=== PATIENT | male | born 1975 | race Caucasian/White ===

== ENCOUNTER 2024-08-13 12:15 | Emergency (ER) | payer BC, SELFPAY ==
[2024-08-13 12:33] VITALS: BP 159/120; PULSE 117; RESP 21; TEMP 37.3; O2SAT 94; BMI 31.4
--- NOTE | 2024-08-13 12:41 | XR_ITS ---
Examination: CTA chest with intravenous contrast 2-D reconstructions 3-D reconstructions, vascular Date and time of exam: August 13, 2024 1457 hrs. Indications: Shortness of breath chest pain coughing today CTDI: vol (mGy) 12.5 DLP: (mGycm) 400 Technique: Multiple axial sections of the thorax have been obtained. 3 mm slice thickness, from below the hemidiaphragms to above the apices of the lungs. Mediastinal and lung density settings have been obtained. 2-D sagittal and coronal reconstructions. 3-D angiographic renderings, 3-D volume renderings, 3D post processing, vascular maximum intensity projections obtained. Contrast administered is 100 cc Isovue-370. Low dose protocols were performed. One or more of the following dose reduction techniques were used; automated exposure control, adjustment of the mA and/or KV according to patient size, use of iterative reconstruction technique. Findings: AP dimension ascending thoracic aorta 4 cm No pulmonary artery emboli Mild enlargement cardiac contour No pneumonia or pulmonary edema No pleural disease Liver is mildly irregular in contour No pancreatic mass Gallbladder wall appears thickened Impression: Negative for pulmonary artery emboli Recommend hepatobiliary sonography follow-up to exclude acute acalculous cholecystitis
--- NOTE | 2024-08-13 12:41 | XR_ITS ---
Examination: PA lateral chest 2 views Technique: Upright PA lateral chest 2 views Exam date and time: August 13, 2024 1255 hrs. Indications: Chest pain today Findings: Early heart failure Mild to moderate enlargement cardiac contour Prominent vascular congestion with early septal edema at the lung bases Impression: Early heart failure
--- NOTE | 2024-08-13 12:41 | EKG_ITS ---
[facility] Test Date: 2024-08-13 Pat Name: VALERIA ALMAGUER Department: Room: - Gender: Male [employer]: : 1975 Requested By: Kaleb Nicolas Order Number: [id number] Reading MD: Kaleb Nicolas Measurements Intervals [place] Rate: 110 P: 55 CT: 153 QRS: 101 QRSD: 102 T: 66 QT: 341 QTc: 462 Interpretive Statements SINUS TACHYCARDIA LEFT ATRIAL ENLARGEMENT [-0.15mV P WAVE IN V1/V2] POSSIBLE RIGHT VENTRICULAR HYPERTROPHY [SOME/ALL OF: PROMINENT R IN V1, LATE TRANSITION, RAD, KAREY, SSS] Compared to ECG 04/01/2024 08:24:06 Atrial abnormality now present Atrial flutter no longer present Intraventricular conduction delay no longer present ST (T wave) deviation no longer present /store/S0/[id number]/ecg/[id number].pdf
--- NOTE | 2024-08-13 12:42 | PD.EDRME ---
Rapid Medical Screening Exam RME Arrival date/time: 08/13/24 12:15 Chief Complaint: Shortness of Breath/Dyspnea Time Seen by Provider: 08/13/24 12:37 Vital signs: Vital Signs Temperature 99.2 F 08/13/24 12:33 Pulse Rate 117 H 08/13/24 12:33 Respiratory Rate 21 H 08/13/24 12:33 Blood Pressure 159/120 H 08/13/24 12:33 Pulse Oximetry (%) 94 L 08/13/24 12:33 Oxygen Delivery Method Room Air 08/13/24 12:33 Vital signs reviewed by provider: Yes RME Narrative: 41-year-old male with history of A-fib presents for evaluation of chest pain, shortness of breath, cough x 1 day. Patient reports history of septal ablation in April and has since been off all cardiac meds. Endorses bilateral lower extremity pitting edema x 1 day.
[2024-08-13 13:34] LABS: Basophils % (Auto) 0 % (0-2.5); Eosinophils # (Auto) 0.1 Thou/mm3 (0.0-0.5); Eosinophils % (Auto) 1 % (0-10); Hematocrit 42.4 % (41.0-53.0); Hemoglobin 14.1 g/dL (13.5-16.0); Immature Granulocytes % (Auto) 1 % (0-0); Lymphocytes % (Auto) 23 % (10-50); Mean Corpuscular HGB Conc 33.3 g/dl (31.0-37.0); Mean Corpuscular Hemoglobin 30.7 pg (25.0-35.0); Mean Corpuscular Volume 92 fL (80-100); Monocytes # (Auto) 0.7 Thou/mm3 (0.0-0.8); Monocytes % (Auto) 8 % (0-12); Neutrophils % (Auto) 67 % (37-80); Nucleated Red Blood Cell # 0.02 Thou/mm3 (0.00-0.00); Nucleated Red Blood Cell % 0 /100 WBC (0); Platelet Count 290 Thou/mm3 (140-440); RDW Standard Deviation 50.6 fL (35.1-43.9); White Blood Count 8.9 Thou/mm3 (3.8-10.6)
[2024-08-13] MEDS: ACETAMINOPHEN 325 MG TABLET PO (13:48)
[2024-08-13 13:49] LABS: INR 1.2 (0.9-1.3); Partial Thromboplastin Time 24.8 Seconds (22.0-36.0)
[2024-08-13 13:51] LABS: B-Type Natriuretic Peptide 416 pg/mL (0-100)
[2024-08-13 13:54] LABS: Alanine Aminotransferase 47 U/L (10-49); Albumin, Serum 4.5 gm/dL (3.5-5.0); Albumin/Globulin Ratio 1.5 (1.2-2.2); Alkaline Phosphatase 129 U/L (46-116); Anion Gap 7 (7-16); Aspartate Amino Transferase 36 U/L (0-34); BUN/Creatinine Ratio 13 Ratio (12-20); Bilirubin,Total 0.8 mg/dL (0.3-1.2); Blood Urea Nitrogen 17 mg/dL (9-23); Calcium 10.2 mg/dL (8.3-10.6); Calcium (Corrected) 10.2 mg/dL (8.5-10.1); Carbon Dioxide 25.2 mMol/L (20.0-31.0); Chloride 107 mMol/L (98-107); Creatinine (Component) 1.3 mg/dL (0.6-1.3); Estimated Creatinine Clearance 84.5 mL/min (>60); Globulin 3.1 gm/dL (2.3-3.5); Glucose 123 mg/dL (74-106); Osmolality,Calculated 280 (275-295); Potassium 4.5 mMol/L (3.4-5.1); Sodium 139 mMol/L (136-145); Total Protein 7.6 gm/dL (5.7-8.2); eGFR > 60 See Note
[2024-08-13 13:58] LABS: Troponin I 0.101 ng/mL (0.0-0.045)
[2024-08-13 14:24] VITALS: BP 151/114; PULSE 98; RESP 18; TEMP 36.6; O2SAT 95
--- NOTE | 2024-08-13 14:59 | PD.EDSOB ---
ED SOB =RME/HPI General Chief Complaint: Shortness of Breath/Dyspnea Stated Complaint: SHORTNESS OF BREATH WITH COUGH Time Seen by Provider: 08/13/24 12:37 Arrival date/time: 08/13/24 12:15 Limitations: no limitations RME / HPI RME / HPI Narrative: 41-year-old male with history of A-fib presents for evaluation of chest pain, shortness of breath, cough x 1 day. Patient reports history of septal ablation in April and has since been off all cardiac meds. Endorses bilateral lower extremity pitting edema x [address] TA MAIN ED EVALUATION: 49 year old male with history of Afib, s/p cardiac ablation performed by Dr. Alfredo 04/2024 and doing well after ablation up until 1 week ago, presents to the ED for complaint of shortness of breath with cough today. States last week was diagnosed with walking pneumonia but PCP and treated with Z-pack which he completed 5 days ago. States in the midst of the flu-like symptoms, he developed shortness of breath with no alleviating/aggravating factors. Denies fevers, chills, chest pain, abdominal pain, n/v/d, or urinary symptoms. Related Data Home Medications ?Medication ?Instructions ?Recorded ?Confirmed carvedilol 6.25 mg tablet 6.25 mg PO BID HTN 12/31/23 04/01/24 apixaban 5 mg tablet (Eliquis) 5 mg PO BID 04/01/24 04/01/24 diltiazem HCl 30 mg tablet 30 mg PO TID 04/01/24 04/01/24 furosemide 20 mg tablet 20 mg PO QDAY 04/01/24 04/01/24 Previous Rx's ?Medication ?Instructions ?Recorded furosemide 20 mg tablet (Lasix) 20 mg PO QAM #30 tabs 08/13/24 Allergies Allergy/AdvReac Type Severity Reaction Status Date / Time Sulfa (Sulfonamide Allergy Unknown Verified 08/13/24 12:16 Antibiotics) Review of Systems Review of Systems Systems Reviewed: All systems reviewed, normal except as documented Past Medical History Past Medical History CARDIAC: Positive Cardiac Disorders and Hypertension RESPIRATORY: Positive Sleep Apnea GASTROINTESTINAL: Positive Gastrointestinal Disorders, Hiatal Hernia (has 2 hernia(has 1 mesh and one lasered) and Obesity PSYCHO/SOCIAL: Positive Depression, Anxiety (due to large crowd) and Post Traumatic Stress Disorder (pt stated he has PTSD) OTHER HISTORY: Positive Chicken Pox Family History FAMILY HISTORY: Positive Family Psychiatric Problems (paternal aunt schit) and Family Surgery (father had knee surgery); Negative Family Respiratory Disorders, Family Cardiac Disorders or Family Anesthesia Reaction Surgical History SURGICAL: Positive Angiogram (04/01/2024) Social History SMOKING STATUS: Never smoker ED Exam General Limitations: Present no limitations General appearance: Present alert and in no apparent distress Head Head exam: Present atraumatic Eye Eye exam: Present normal appearance, PERRL and EOMI ENT ENT exam: Present normal exam, normal oropharynx and mucous membranes moist Neck Neck exam: Present normal inspection, full ROM and trachea midline Chest Chest inspection: Present normal inspection and symmetric chest wall rise Respiratory Respiratory exam: Present normal lung sounds bilaterally and other (No respiratory distress, speaking full sentences ) Cardiovascular Cardiovascular exam: Present tachycardia (rate 105 ) and normal heart sounds Abdominal Exam Abdominal exam: Present soft and normal bowel sounds Extremities Exam Extremities exam: Present normal inspection and full ROM Back Exam Back exam: Present normal inspection and full ROM Neurological Exam Neurological exam: Present alert, oriented X3 and CN II-XII intact Psychiatric Psychiatric exam: Present normal affect and normal mood Skin Skin exam: Present warm, dry, intact and normal color Course Course Course Narrative: chest xray ordered to help determine etiology of shortness of breath. Quality Measures none Orders Category Date Time Status Bedside COVID-19 Antigen Test NOW Care 08/13/24 12:41 Active Bedside Influenza A&B Antigen Test NOW Care 08/13/24 12:[address] Screening NOW Care 08/13/24 12:41 Active Sterile Supervisor Q4H START 00 Care 08/13/24 12:42 Active EKG (ED ONLY) *Do not use* NOW Care 08/13/24 12:41 Completed Insert IV NOW Care 08/13/24 12:[address] angio chest Stat Exams 08/13/24 12:41 Completed EKG (ED Only) Stat Exams 08/13/24 12:41 Draft XR chest 2V Stat Exams 08/13/24 12:41 Completed B-Type Natriuretic Peptide Stat Lab 08/13/24 13:02 Completed CBC Stat Lab 08/13/24 13:02 Completed Comprehensive Metabolic Panel Stat Lab 08/13/24 13:02 Completed Drug Screen,Urine Stat Lab 08/13/24 12:41 Ordered Magnesium Stat Lab 08/13/24 13:02 Completed Partial Thromboplastin Time Stat Lab 08/13/24 13:02 Completed Prothrombin Time with INR Stat Lab 08/13/24 13:02 Completed Troponin I Stat Lab 08/13/24 13:02 Completed Troponin I Stat Lab 08/13/24 16:57 Completed Urinalysis Stat Lab 08/13/24 12:41 Ordered Acetaminophen Tab [Tylenol Tab] Med 08/13/24 12:42 Discontinued 325 mg PO X1 ONE Reevaluation(s) Reevaluation #1: We reviewed all the results, analysis, and plan to repeat troponin. Time: 16:30 Reevaluation #2: We reviewed all the results, analysis, and treatment plans. Patient is amenable to discharge. Strict return precautions were outlined. Patient was discharged in stable condition. Patient is requesting a refill of his diuretic until he is able to see his gastroenterology teacher. Time: 16:34 Vital Signs Vital signs: Vital Signs Temperature 99.2 F 08/13/24 12:33 Pulse Rate 117 H 08/13/24 12:33 Respiratory Rate 21 H 08/13/24 12:33 Blood Pressure 159/120 H 08/13/24 12:33 Pulse Oximetry (%) 94 L 08/13/24 12:33 Oxygen Delivery Method Room Air 08/13/24 12:33 Pulse ox is 94% on room air which is adequate. Shortness of Breath / Dyspnea MDM Narrative MDM Narrative:: Day Jackson am scribing for and in the presence of Dr. Ta. Patient data External records reviewed:: [facility] previous records (I reviewed H&P on 04/01/2024) Clinical information provided by:: patient Social determinants that could affect healthcare access:: none Patient has the following chronic illnesses:: AFib, s/p cardiac ablation How is presenting disease/condition affected by chronic disease/condition?: exacerbated by Evaluation data The following diagnostics were reviewed and interpreted by me:: lab results, radiology exam(s) and EKG tracing(s) (sinus tachycardia, rate 101, no STEMI. ) Lab and/or radiology exams considered but not ordered:: None Interpretation Summary: Ordering Physician: Kaleb Bernstein PA-C Date of Service: 08/13/24 Procedure(s): CT angio chest Accession Number(s): [id number] cc: Kaleb Bernstein PA-C; Gurmeet Lewis MD; Félix Proctor MD~ Examination: CTA chest with intravenous contrast 2-D reconstructions 3-D reconstructions, vascular Date and time of exam: August 13, 2024 1457 hrs. Indications: Shortness of breath chest pain coughing today CTDI: vol (mGy) 12.5 DLP: (mGycm) 400 Technique: Multiple axial sections of the thorax have been obtained. 3 mm slice thickness, from below the hemidiaphragms to above the apices of the lungs. Mediastinal and lung density settings have been obtained. 2-D sagittal and coronal reconstructions. 3-D angiographic renderings, 3-D volume renderings, 3D post processing, vascular maximum intensity projections obtained. Contrast administered is 100 cc Isovue-370. Low dose protocols were performed. One or more of the following dose reduction techniques were used; automated exposure control, adjustment of the mA and/or KV according to patient size, use of iterative reconstruction technique. Findings: AP dimension ascending thoracic aorta 4 cm No pulmonary artery emboli Mild enlargement cardiac contour No pneumonia or pulmonary edema No pleural disease Liver is mildly irregular in contour No pancreatic mass Gallbladder wall appears thickened Impression: Negative for pulmonary artery emboli Recommend hepatobiliary sonography follow-up to exclude acute acalculous cholecystitis Dictated By: Félix Proctor MD Signed By: <Electronically signed by Félix Proctor MD in [place]> 08/13/24 1524 Ordering Physician: Kaleb Bernstein PA-C Date of Service: 08/13/24 Procedure(s): XR chest 2V Accession Number(s): [id number] cc: Kaleb Bernstein PA-C; Félix Proctor MD~ Examination: PA lateral chest 2 views Technique: Upright PA lateral chest 2 views Exam date and time: August 13, 2024 1255 hrs. Indications: Chest pain today Findings: Early heart failure Mild to moderate enlargement cardiac contour Prominent vascular congestion with early septal edema at the lung bases Impression: Early heart failure Dictated By: Félix Proctor MD Signed By: <Electronically signed by Félix Proctor MD in [place]> 08/13/24 1311 Medications / Prescriptions Medications or Prescriptions considered but not ordered:: None Medication administrations:: Medication Administration History Discontinued Medications Acetaminophen (Acetaminophen 325 Mg Tablet) 325 mg PO X1 ONE Stop: 08/13/24 12:43 Last Admin: 08/13/24 13:48 Dose: 325 mg Documented By: TM See above Consultations Consultation(s) initiated? (list below): Yes Consultation #1 (Physician, Specialty, Details): I spoke with gastroenterology teacher Dr. Ramos. Discussed patients PMHx, HPI, ED course, exam findings, labs, and radiology results. States there is a troponin leak and is okay for the patient to be discharged home and follow up with gastroenterology teacher. Time: 16:28 Diagnosis Shortness of Breath Differential Diagnosis: community acquired pneumonia and other (Viral illness, CHF, CA ) Most likely diagnosis given after review of the tests above:: Acute dyspnea Elevated troponin I level Admission Indicated Admission indicated?: not indicated Admission Request Was there a request for admission?: No Disposition Plan Disposition Plan: Discharge Discharge Attestation Discharge Attestation: The patient and all family members were given an opportunity to ask questions and understood the discharge instructions. Discharge instructions specifically effects, indications for sooner follow up or return to the emergency department, and the expected course of current diagnosis. Patient condition: Stable Critical Care Time Critical Care Time Critical Care Time: Yes Total Critical Care Time (min.): 35 Attestation: The high probability of sudden, clinically significant deterioration in the patient's condition required the highest level of my preparedness to intervene urgently. The services I provided to this patient were to treat and/or prevent clinically significant deterioration. Services included the following: chart data review, reviewing nursing notes and/or old charts, documentation time, change management consultant collaboration regarding findings and treatment options, medication orders and management, direct patient care, vital sign assessments and ordering, interpreting and reviewing diagnostic studies and lab tests. Aggregate critical care time includes only time during which I was engaged in work directly related to the patient's care, as described above, whether at bedside or elsewhere in the Emergency Department. It did not include time spent performing other reported procedures or the services of residents, students, nurses or physician assistants. Discharge Plan Plan Patient Disposition: HOME (Self Care) Patient condition on transfer: Stable Prescriptions/Referrals Prescriptions/Med Rec: New furosemide [Lasix] 20 mg tablet 20 mg PO QAM Qty: 30 0RF No Action carvedilol 6.25 mg tablet 6.25 mg PO BID Patient Comments: TAKE 1 TABLET BY MOUTH TWICE A DAY furosemide 20 mg Tablet 20 mg PO QDAY diltiazem HCl 30 mg Tablet 30 mg PO TID Eliquis 5 mg Tablet 5 mg PO BID Referrals: Gurmeet Lewis MD [Primary Care Provider] - In 1 week Problem List Clinical Impression: Acute dyspnea, Elevated troponin I level Patient/Caregiver Discharge Instructions Discharge Activity: activity as tolerated Education Materials: ED Shortness of Breath (Dyspnea) Print Language: Sami Stand Alone Forms: [facility] Award Info., Patient Portal Info Letter
[2024-08-13 16:11] VITALS: BP 156/114; PULSE 104; RESP 15; TEMP 36.7; O2SAT 97
[2024-08-13 17:20] LABS: Troponin I 0.112 ng/mL (0.0-0.045)
== END 2024-08-13 18:08 | disposition home or self-care (01) ==
PROVIDERS: Physician Assistant; Emergency Provider Emergency Medicine; PCP Internal Medicine
DX: I11.0 Hypertensive heart disease with heart failure (principal); I50.9 Heart failure, unspecified; R00.0 Tachycardia, unspecified; I48.91 Unspecified atrial fibrillation; Z79.01 Long term (current) use of anticoagulants
CPT/HCPCS: 36415; 71046; 71275; 80053; 80307; 81001; 83735; 83880; 84484; 85025; 85610; 85730; 87400; 87811; 93005; 99291; A4649; Q9967; A9270

== ENCOUNTER 2024-08-15 04:02 | Emergency (ER) | payer BC, SELFPAY ==
[2024-08-15] VITALS (9 sets, daily range): BP systolic 114–164; BP diastolic 108–123; PULSE 88–107; RESP 16–20; TEMP 36.4–36.8; O2SAT 95–98; BMI 31.4
--- NOTE | 2024-08-15 04:09 | PD.EDRME ---
Rapid Medical Screening Exam RME Arrival date/time: 08/15/24 04:02 49 year old male present to Ed for c/o chest pain, sob today I have greeted and performed a focused initial assessment of this patient. A comprehensive ED assessment and evaluation of the patient, analysis of all test results, and completion of the medical decision making process will be conducted by additional ED providers. Chief Complaint: General Adult/Misc Complain Time Seen by Provider: 08/15/24 04:07 Vital signs: Vital Signs Temperature 97.5 F 08/15/24 04:08 Pulse Rate 107 H 08/15/24 04:08 Respiratory Rate 20 08/15/24 04:08 Blood Pressure 154/111 H 08/15/24 04:08 Pulse Oximetry (%) 96 08/15/24 04:08 Oxygen Delivery Method Room Air 08/15/24 04:08
--- NOTE | 2024-08-15 04:10 | XR_ITS ---
Examination: PA lateral chest 2 views Technique: Upright PA lateral chest 2 views August 15, 2024 0416 hrs. Comparison August 13, 2024 Indications: Shortness of breath chest pain today. Findings: Mild heart failure Mild prominence left ventricle Prominent vascular congestion Early pulmonary edema at the lung bases Impression: Mild heart failure
[2024-08-15 05:31] LABS: Basophils % (Auto) 0 % (0-2.5); Eosinophils # (Auto) 0.1 Thou/mm3 (0.0-0.5); Eosinophils % (Auto) 1 % (0-10); Hematocrit 41.4 % (41.0-53.0); Immature Granulocytes % (Auto) 1 % (0-0); Immature Granulocytes Auto 0.08 Thou/mm3 (0.00-0.00); Lymphocytes # (Auto) 1.1 Thou/mm3 (1.0-4.8); Lymphocytes % (Auto) 9 % (10-50); Mean Corpuscular HGB Conc 33.8 g/dl (31.0-37.0); Mean Corpuscular Volume 92 fL (80-100); Monocytes # (Auto) 0.5 Thou/mm3 (0.0-0.8); Monocytes % (Auto) 5 % (0-12); Neutrophils # (Auto) 10.3 Thou/mm3 (1.8-7.7); Neutrophils % (Auto) 85 % (37-80); Nucleated Red Blood Cell # 0.02 Thou/mm3 (0.00-0.00); Nucleated Red Blood Cell % 0 /100 WBC (0); Platelet Count 300 Thou/mm3 (140-440); RDW Standard Deviation 50.4 fL (35.1-43.9); Red Blood Count 4.52 Miln/mm3 (4.50-5.90); White Blood Count 12.1 Thou/mm3 (3.8-10.6)
[2024-08-15 05:40] LABS: INR 1.3 (0.9-1.3); Prothrombin Time 13.5 Seconds (9.0-12.2)
[2024-08-15 06:02] LABS: B-Type Natriuretic Peptide 529 pg/mL (0-100)
[2024-08-15 06:03] LABS: Alanine Aminotransferase 43 U/L (10-49); Albumin, Serum 4.5 gm/dL (3.5-5.0); Albumin/Globulin Ratio 1.7 (1.2-2.2); Alkaline Phosphatase 123 U/L (46-116); Anion Gap 11 (7-16); Aspartate Amino Transferase 33 U/L (0-34); BUN/Creatinine Ratio 18 Ratio (12-20); Bilirubin,Total 1.1 mg/dL (0.3-1.2); Blood Urea Nitrogen 23 mg/dL (9-23); Calcium 9.3 mg/dL (8.3-10.6); Calcium (Corrected) 9.3 mg/dL (8.5-10.1); Carbon Dioxide 21.4 mMol/L (20.0-31.0); Chloride 103 mMol/L (98-107); Creatinine (Component) 1.3 mg/dL (0.6-1.3); Estimated Creatinine Clearance 84.5 mL/min (>60); Globulin 2.6 gm/dL (2.3-3.5); Glucose 176 mg/dL (74-106); Magnesium 1.8 mg/dL (1.6-2.6); Osmolality,Calculated 277 (275-295); Sodium 135 mMol/L (136-145); Thyroid Stimulating Hormone 3.14 uIU/mL (0.55-4.78); Total Protein 7.1 gm/dL (5.7-8.2); eGFR > 60 See Note
[2024-08-15] MEDS: NITROGLYCERIN OINT 2% 1 INCH PACKET 2 INCH TOP (06:58)
[2024-08-15] MEDS: FUROSEMIDE INJ 10 MG/ML 4ML VIAL 40 MG IVP (07:00)
--- NOTE | 2024-08-15 07:28 | PC.NURSE ---
REPORT RECEIVED, PATIENT SITTING UP IN BED WITH NO COMPLAINTS AT THIS TIME. URINAL GIVEN TO PATIENT. WILL CONTINUE TO MONITOR. CALL LIGHT WITHIN REACH.
--- NOTE | 2024-08-15 07:40 | EDNOTE_ITS ---
ED General RME/HPI General Chief complaint: General Adult/Misc Complain Stated complaint: DIZZINESS, LIGHTHEADED Time Seen by Provider: 08/15/24 04:07 Arrival date/time: 08/15/24 04:02 RME / HPI RME / HPI narrative: RME: 08/15/24 04:02 49 year old male present to Ed for c/o chest pain, sob today 49-year-old male with a history of A-fib/flutter (status post ablation, no longer on anticoagulant), CHF (EF of 30 to 35%) who presents with approximately 2 weeks of worsening shortness of breath and chest tightness. He had seen his primary care doctor, Dr. Prince initially and was started on a Z-Cirilo for a bad cough . Z-Cirilo did not clear his symptoms a progressively came more short of breath therefore came to the emergency department 2 to 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 Today he returns as his shortness of breath continues to worsen. Shortness of breath is described as worse at night times, occasionally waking him up at night. It is associated with a dry cough. He has a circumferential chest tightness, this worse with deep breaths. It is also worsened with laying down. He denies fevers, chills, sweats. He also complains of lower extremity/ankle swelling. He takes furosemide 20 mg once daily. Related Data Home Medications ?Medication ?Instructions ?Recorded ?Confirmed furosemide 20 mg tablet 20 mg PO QDAY 04/01/24 08/15/24 Previous Rx's ?Medication ?Instructions ?Recorded diltiazem HCl 120 mg capsule,24 120 mg PO QAM #14 caps 08/15/24 hr,extended release Allergies Allergy/AdvReac Type Severity Reaction Status Date / Time Sulfa (Sulfonamide Allergy Unknown Verified 08/15/24 04:04 Antibiotics) Review of Systems Review of Systems Systems Reviewed: All systems reviewed, normal except as documented ED Exam Narrative Physical exam: GENERAL APPEARANCE: AxOx4, generally well-appearing, no acute distress, speaking full sentences, legs crossed and comfortable HEENT: NC, AT. MMM. EOMI, clear conjunctiva, oropharynx clear. NECK: Supple without lymphadenopathy. No stiffness or restricted ROM. HEART: Normal rate and regular rhythm, normal S1/S1, no m/r/g LUNGS: Distant lung sounds moving air well. No crackles or wheezes are heard. ABDOMEN: Soft, nontender, nondistended with good bowel sounds heard. BACK: No midline C/T/L spine pain or deformity, No CVAT, no obvious deformity. EXTREMITIES: Without cyanosis, clubbing or trace bilateral lower extremity edema. MUSCULOSKELETAL: FROM of all major joints, no chest tenderness NEUROLOGICAL: Grossly nonfocal. Alert and oriented, moving all 4 extremities. CN not formally tested but appear grossly intact. Observed to ambulate with normal gait. Skin: Warm and dry without any rash. Course Quality Measures none Orders Category Date Time Status EKG (ED ONLY) *Do not use* NOW Care 08/15/24 04:05 Completed EKG (ED Only) Stat Exams 08/15/24 04:05 Ordered XR chest 2V Stat Exams 08/15/24 04:10 Completed BNP [B-Type Natriuretic Peptide] Stat Lab 08/15/24 04:50 Completed CBC Stat Lab 08/15/24 04:50 Completed CMP [Comprehensive Metabolic Panel] Stat Lab 08/15/24 04:50 Completed INR [Prothrombin Time with INR] Stat Lab 08/15/24 04:50 Completed Mag [Magnesium] Stat Lab 08/15/24 04:50 Completed TSH [Thyroid Stimulating Hormone] Stat Lab 08/15/24 04:50 Completed Troponin I Stat Lab 08/15/24 04:50 Completed Troponin I Stat Lab 08/15/24 09:00 Completed Diltiazem [Cardizem] Med 08/15/24 09:03 Discontinued 30 mg PO X1 ONE Furosemide Inj [Lasix Inj] Med 08/15/24 06:53 Discontinued 40 mg IVP X1 ONE Nitroglycerin Oint 2% [Nitro-paste Oint 2%] Med 08/15/24 06:53 Discontinued 2 inch TOP X1 ONE Reevaluation(s) Reevaluation #1: 1.25 liters of urine output after furosemide. He states he feels better and is able to take a pierre breath. He no longer feels heavy on his chest. He is requesting discharge at this point as he feels it would be more convenient for him to urinate in his own bathroom. Patients heart rate has improved significantly to a range of 85-95.. Time: 09:00 Vital Signs Vital signs: Vital Signs Temperature 97.5 F 08/15/24 04:08 Pulse Rate 107 H 08/15/24 04:08 Respiratory Rate 20 08/15/24 04:08 Blood Pressure 154/111 H 08/15/24 04:08 Pulse Oximetry (%) 96 08/15/24 04:08 Oxygen Delivery Method Room Air 08/15/24 04:08 SpO2 96% on room air, not hypoxic MDM Patient data External records reviewed:: [facility] previous records (Transesophageal echocardiogram 12/2023 with: severe systolic dysfunction. Severe global hypokinesis wall motion. The ejection fraction is visually estimated at 30- 35%) Clinical information provided by:: patient Social determinants that could affect healthcare access:: none Patient has the following chronic illnesses:: CHF How is presenting disease/condition affected by chronic disease/condition?: c aused by Evaluation data The following diagnostics were reviewed and interpreted by me:: lab results, radiology exam(s) and EKG tracing(s) Lab and/or radiology exams considered but not ordered:: None Interpretation Summary: As per narrative Medications Medications considered but not ordered:: None Medication administrations:: Medication Administration History Discontinued Medications Diltiazem HCl (Diltiazem 30 Mg Tablet) 30 mg PO X1 ONE Stop: 08/15/24 09:04 Last Admin: 08/15/24 09:11 Dose: 30 mg Documented By: JOSÉ ANTONIO Furosemide (Furosemide Inj 10 Mg/Ml 4ml Vial) 40 mg IVP X1 ONE Stop: 08/15/24 06:54 Last Admin: 08/15/24 07:00 Dose: 40 mg Documented By: AYE Nitroglycerin (Nitroglycerin Oint 2% 1 Inch Packet) 2 inch TOP X1 ONE Stop: 08/15/24 06:54 Last Admin: 08/15/24 06:58 Dose: 2 inch Documented By: AYE Above Consultations Consultation(s) initiated? (list below): No Diagnosis Differential Diagnosis ED Complaint MDM: CHF exacerbation, pneumonia, bronchitis, asthma exacerbation, COPD exacerba Most likely diagnosis given after review of the tests above:: See below Admission Indicated Admission indicated?: not indicated Explain why admission is indicated or not indicated:: see above Admission Request Was there a request for admission?: No Disposition Plan Disposition Plan: Discharge Discharge Attestation Discharge Attestation: The patient and all family members were given an opportunity to ask questions and understood the discharge instructions. Discharge instructions specifically effects, indications for sooner follow up or return to the emergency department, and the expected course of current diagnosis. Patient condition: Stable Medical Decision Making MDM Narrative MDM Narrative: Mr. Peterson is otherwise well-appearing without signs of respiratory distress who presents with chest pain and shortness of breath consistent with a CHF exacerbation in the setting of having quite advanced heart failure for his age (EF of 30 to 35%). He has a history of atrial fibrillation of which he is post ablation no longer is taking anticoagulation. EKG today shows sinus tachycardia without signs of ischemic changes. Troponin is mildly elevated at 0.15 and remained stable with a repeat of 0.13 where on chart review shows is stable in comparison to his visit here 2 days ago where he was 0.10 and 0.11. I suspect there is a worsening CHF exacerbation over these last couple of days and is consistent with a type II strain on the heart. BNP supports this picture at 500. This is in the setting of having an EF of 30 to 35% and on minimal diuretics, Lasix at 20 mg daily. Chest x-ray my interpretation shows diffuse interstitial markings consistent with pulmonary edema, cardiomegaly, without bony abnormalities, I reviewed the radiology interpretation and agree. Moreso given his low EF, his blood pressure is quite elevated today 154/111, which I feel is further worsening a picture of pulmonary edema. As result patient was given nitroglycerin paste for preload and afterload control while diuretic was given parenterally. After diuretic administration he had approximately 1.25 L of urine output with significant improvement in symptoms. As he is clinically well-appearing, symptomatically improved after diuresis here in the emergency department, without acute findings on laboratory testing he is appropriate for continued outpatient treatment and follow-up. He has been advised to double on his Lasix for the next 5 days and to follow-up closely with his primary care provider within the week. He can also keep his normal appointment with his firestopper installer at the end of this month. Differential Diagnosis Differential Diagnosis: CHF exacerbation, pneumonia, bronchitis, asthma exacerbation, COPD exacerba Lab Data 08/15/24 04:50 08/15/24 04:50 Labs: Lab Results 08/15/24 08/15/24 Range/Units 04:50 09:00 WBC 12.1 H (3.8-10.6) Thou/mm3 RBC 4.52 (4.50-5.90) Miln/mm3 Hgb 14.0 (13.5-16.0) g/dL Hct 41.4 (41.0-53.0) % MCV 92 (80-100) fL MCH 31.0 (25.0-35.0) pg MCHC 33.8 (31.0-37.0) g/dl RDW Std Deviation 50.4 H (35.1-43.9) fL Plt Count 300 (140-440) Thou/mm3 Neut % (Auto) 85 H (37-80) % Lymph % (Auto) 9 L (10-50) % Garza % (Auto) 5 (0-12) % Eos % (Auto) 1 (0-10) % Baso % (Auto) 0 (0-2.5) % Neut # (Auto) 10.3 H (1.8-7.7) Thou/mm3 Lymph # (Auto) 1.1 (1.0-4.8) Thou/mm3 Garza # (Auto) 0.5 (0.0-0.8) Thou/mm3 Eos # (Auto) 0.1 (0.0-0.5) Thou/mm3 Baso # (Auto) 0.0 (0.0-0.2) Thou/mm3 Immature Gran # (Auto) 0.08 H (0.00-0.00) Thou/mm3 Absolute Nucleated RBC 0.02 H (0.00-0.00) Thou/mm3 Immature Gran % 1 H (0-0) % Nucleated RBC % 0 (0) /100 WBC PT 13.5 H (9.0-12.2) Seconds INR 1.3 (0.9-1.3) Sodium 135 L (136-145) mMol/L Potassium 4.0 D (3.4-5.1) mMol/L Chloride 103 (98-107) mMol/L Carbon Dioxide 21.4 (20.0-31.0) mMol/L Anion Gap 11 (7-16) BUN 23 (9-23) mg/dL Creatinine 1.3 (0.6-1.3) mg/dL Estim Creat Clear Calc 84.5 (>60) mL/min eGFR > 60 (60 - ) See Note BUN/Creatinine Ratio 18 (12-20) Ratio Glucose 176 H D (74-106) mg/dL Calculated Osmolality 277 (275-295) Calcium 9.3 (8.3-10.6) mg/dL Corrected Calcium 9.3 (8.5-10.1) mg/dL Magnesium 1.8 (1.6-2.6) mg/dL Total Bilirubin 1.1 (0.3-1.2) mg/dL AST 33 (0-34) U/L ALT 43 (10-49) U/L Alkaline Phosphatase 123 H (46-116) U/L Troponin I 0.150 H* 0.133 H* (0.0-0.045) ng/mL B-Natriuretic Peptide 529 H* (0-100) pg/mL Total Protein 7.1 (5.7-8.2) gm/dL Albumin 4.5 (3.5-5.0) gm/dL Globulin 2.6 (2.3-3.5) gm/dL Albumin/Globulin Ratio 1.7 (1.2-2.2) TSH 3.14 (0.55-4.78) uIU/mL Discharge Plan Plan Patient Disposition: HOME (Self Care) Prescriptions/Referrals Prescriptions/Med Rec: New diltiazem HCl 120 mg capsule,extended release 24 hr 120 mg PO QAM Qty: 14 0RF No Action furosemide 20 mg Tablet 20 mg PO QDAY Referrals: Gurmeet Lewis MD [Primary Care Provider] - In 1 week Problem List Clinical Impression: CHF exacerbation, Elevated blood pressure reading Patient/Caregiver Discharge Instructions Education Materials: ED CHF Left Side Additional Instructions: Please double your furosemide (Lasix) to 20 mg twice daily for the next 4 days. You can take your first nighttime dose this evening. Follow-up with your primary care doctor in 1 week for recheck. You can return to the emergency department sooner symptoms worsen or if he notes any new, concerning issues. Print Language: [place] Stand Alone Forms: [employer] Award Info., Patient Portal Info Letter
[2024-08-15] MEDS: DILTIAZEM 30 MG TABLET PO (09:11)
[2024-08-15 09:58] LABS: Troponin I 0.133 ng/mL (0.0-0.045)
== END 2024-08-15 10:14 | disposition home or self-care (01) ==
PROVIDERS: Physician Assistant; Emergency Provider Emergency Medicine; PCP Internal Medicine
DX: I50.9 Heart failure, unspecified (principal); R03.0 Elevated blood-pressure reading, without diagnosis of hypertension; R00.0 Tachycardia, unspecified
CPT/HCPCS: 36415; 71046; 80053; 83735; 83880; 84443; 84484; 85025; 85610; 93005; 96374; 99284; J1940; A9270

== ENCOUNTER → 2024-08-23 | Outpatient (CLI) | payer BC, SELFPAY ==
[2024-08-23 16:37] LABS: Basophils % (Auto) 1 % (0-2.5); Eosinophils # (Auto) 0.2 Thou/mm3 (0.0-0.5); Eosinophils % (Auto) 2 % (0-10); Hematocrit 53.7 % (41.0-53.0); Immature Granulocytes % (Auto) 0 % (0-0); Immature Granulocytes Auto 0.03 Thou/mm3 (0.00-0.00); Lymphocytes # (Auto) 1.8 Thou/mm3 (1.0-4.8); Lymphocytes % (Auto) 23 % (10-50); Mean Corpuscular HGB Conc 33.5 g/dl (31.0-37.0); Mean Corpuscular Hemoglobin 30.5 pg (25.0-35.0); Mean Corpuscular Volume 91 fL (80-100); Monocytes # (Auto) 0.7 Thou/mm3 (0.0-0.8); Monocytes % (Auto) 8 % (0-12); Neutrophils # (Auto) 5.2 Thou/mm3 (1.8-7.7); Neutrophils % (Auto) 66 % (37-80); Nucleated Red Blood Cell % 0 /100 WBC (0); Platelet Count 487 Thou/mm3 (140-440); RDW Standard Deviation 47.1 fL (35.1-43.9)
[2024-08-23 16:49] LABS: Glucose Estimated Average 137 mg/dL (80-131); Hemoglobin A1C 6.4 % Hgb (4.8-6.0)
[2024-08-23 17:00] LABS: Vitamin D 25 Hydroxy Total 18.5 ng/mL (7.3-40.2)
[2024-08-23 17:06] LABS: Alanine Aminotransferase 88 U/L (10-49); Albumin, Serum 4.8 gm/dL (3.5-5.0); Albumin/Globulin Ratio 1.5 (1.2-2.2); Alkaline Phosphatase 182 U/L (46-116); Anion Gap 9 (7-16); Aspartate Amino Transferase 54 U/L (0-34); BUN/Creatinine Ratio 15 Ratio (12-20); Bilirubin,Total 0.6 mg/dL (0.3-1.2); Blood Urea Nitrogen 18 mg/dL (9-23); Calcium 10.1 mg/dL (8.3-10.6); Calcium (Corrected) 10.1 mg/dL (8.5-10.1); Carbon Dioxide 24.6 mMol/L (20.0-31.0); Cardiac Risk Estimate 6.6 RATIO (4.0-6.7); Chloride 103 mMol/L (98-107); Cholesterol 249 mg/dL (132-200); Creatinine (Component) 1.2 mg/dL (0.6-1.3); Free T4 (Free Thyroxine) 1.61 ng/dL (0.89-1.76); Globulin 3.1 gm/dL (2.3-3.5); Glucose 145 mg/dL (74-106); HDL Cholesterol 38 mg/dL (40-60); LDL Cholesterol,Calculated 168 mg/dL (0-130); Osmolality,Calculated 278 (275-295); Potassium 4.6 mMol/L (3.4-5.1); Sodium 137 mMol/L (136-145); Thyroid Stimulating Hormone 2.83 uIU/mL (0.55-4.78); Total Protein 7.9 gm/dL (5.7-8.2); Triglycerides 216 mg/dL (30-150); eGFR > 60 See Note
== END | disposition home or self-care (01) ==
LOC: COPL 14:45
PROVIDERS: PCP Internal Medicine; Referring Provider Internal Medicine; Visit Provider Internal Medicine
DX: Z00.00 Encounter for general adult medical examination without abnormal findings (principal)
CPT/HCPCS: 36415; 80053; 80061; 82306; 83036; 84439; 84443; 85025

== ENCOUNTER → 2024-10-19 | Outpatient (CLI) | payer BC, SELFPAY ==
[2024-10-19 09:32] LABS: Basophils % (Auto) 0 % (0-2.5); Eosinophils # (Auto) 0.2 Thou/mm3 (0.0-0.5); Eosinophils % (Auto) 3 % (0-10); Hematocrit 52.5 % (41.0-53.0); Hemoglobin 18.5 g/dL (13.5-16.0); Immature Granulocytes % (Auto) 0 % (0-0); Immature Granulocytes Auto 0.03 Thou/mm3 (0.00-0.00); Lymphocytes # (Auto) 2.1 Thou/mm3 (1.0-4.8); Lymphocytes % (Auto) 28 % (10-50); Mean Corpuscular HGB Conc 35.2 g/dl (31.0-37.0); Mean Corpuscular Volume 85 fL (80-100); Monocytes # (Auto) 0.6 Thou/mm3 (0.0-0.8); Monocytes % (Auto) 8 % (0-12); Neutrophils # (Auto) 4.6 Thou/mm3 (1.8-7.7); Neutrophils % (Auto) 61 % (37-80); Nucleated Red Blood Cell % 0 /100 WBC (0); Platelet Count 273 Thou/mm3 (140-440); RDW Standard Deviation 38.3 fL (35.1-43.9); Red Blood Count 6.16 Miln/mm3 (4.50-5.90); White Blood Count 7.6 Thou/mm3 (3.8-10.6)
[2024-10-19 09:33] LABS: Prothrombin Time 11.4 Seconds (9.0-12.2)
[2024-10-19 10:08] LABS: Albumin, Serum 4.7 gm/dL (3.5-5.0); Anion Gap 11 (7-16); BUN/Creatinine Ratio 19 Ratio (12-20); Blood Urea Nitrogen 23 mg/dL (9-23); Calcium 9.8 mg/dL (8.3-10.6); Calcium (Corrected) 9.8 mg/dL (8.5-10.1); Carbon Dioxide 26.2 mMol/L (20.0-31.0); Chloride 101 mMol/L (98-107); Creatinine (Component) 1.2 mg/dL (0.6-1.3); Glucose 219 mg/dL (74-106); Osmolality,Calculated 286 (275-295); Phosphorous 3.5 mg/dL (2.4-5.1); Sodium 138 mMol/L (136-145); eGFR > 60 See Note
== END | disposition home or self-care (01) ==
LOC: COPL 08:40
PROVIDERS: PCP Internal Medicine; Referring Provider Internal Medicine Cardiovascular Disease; Visit Provider Internal Medicine Cardiovascular Disease
DX: I48.91 Unspecified atrial fibrillation (principal)
CPT/HCPCS: 36415; 80069; 85025; 85610